=== PATIENT | male | born 1995 | race Caucasian/White ===

== ENCOUNTER 2017-12-09 11:57 | Emergency (ER) | payer BC ==
[2017-12-09 13:15] LABS: PLATELET COUNT 221 10^3/uL (150-400)
--- NOTE | 2017-12-09 13:44 | CPEKG ---
Test Reason : OPEN Blood Pressure : / mmHG Vent. Rate : 055 BPM Atrial Rate : 056 BPM P-R Int : 185 ms QRS Dur : 094 ms QT Int : 389 ms P-R-T Axes : 035 086 052 degrees QTc Int : [address] elev, probable normal early repol pattern Confirmed by Tra Ponce ([id number]) on 12/09/2017 1:43:27 PM Referred By: Confirmed By:Tra Ponce
--- NOTE | 2017-12-09 13:54 | EDPHY ---
H & P Stated Complaint: CP Time Seen by Provider: 12/09/17 12:56 HPI/ROS: CHIEF COMPLAINT: Chest pain HISTORY OF PRESENT ILLNESS: The patient presents the ED for evaluation of 2 days of intermittent chest pain. The patient reports he is experience it primarily at night. He does seem to be worse when he is laying on his side. He is unable to reproduce it laying flat. The patient did have an episode of syncope 2 weeks ago while at a concert that he attributed to dehydration. Additionally approximately 2 months ago the patient had an episode of chest pain with a negative workup. At that point time he was diagnosed with possible gastroesophageal reflux disease versus anxiety. The patient is scheduled to see Cardiology on Saturday for an outpatient visit. The patient's father does have a history of mitral valve prolapse and reported an NSVT which has not required further treatment. The patient is currently asymptomatic at the time of my evaluation. He denies any history of exertional chest pain or presyncope. The patient denies any significant drug or alcohol use. He does smoke occasional marijuana. There is no history of recent surgery. The patient denies fever, cough or congestion. He denies any acute neurologic symptoms. REVIEW OF SYSTEMS: A comprehensive 10 point review of systems is otherwise negative aside from elements mentioned in the history of present illness. Source: Patient Exam Limitations: No limitations - Personal History Current Tetanus/Diphtheria Vaccine: Yes - Medical/Surgical History Hx Asthma: No Hx Chronic Respiratory Disease: No Hx Diabetes: No Hx Cardiac Disease: No Hx Renal Disease: No Hx Cirrhosis: No Hx Alcoholism: No Other PMH: Denies - Social History Smoking Status: Never smoked - Physical Exam Exam: General Appearance: Alert, no distress Eyes: Pupils equal and round no pallor or injection ENT, Mouth: Mucous membranes moist Respiratory: There are no retractions, lungs are clear to auscultation Cardiovascular: Regular rate and rhythm Gastrointestinal: Abdomen is soft and nontender, no masses, bowel sounds normal Neurological: A&O, normal motor function, normal sensory exam, normal cranial nerves Skin: Warm and dry, no rashes Musculoskeletal: Neck is supple nontender Extremities: symmetrical, full range of motion Psychiatric: Patient is oriented X 3, there is no agitation Constitutional: Initial Vital Signs Temperature (C) 36.3 C 12/09/17 12:14 Heart Rate 73 12/09/17 12:14 Respiratory Rate 18 12/09/17 12:14 Blood Pressure 127/88 H 12/09/17 12:14 O2 Sat (%) 97 12/09/17 12:14 O2 Delivery Mode Room Air Allergies/Adverse Reactions: No Known Allergies Allergy (Unverified 12/09/17 12:17) Home Medications: Medication Instructions Recorded NK [No Known Home Meds] 12/09/17 Medical Decision Making - Diagnostics EKG Interpretation: EKG: Complete interpretation has been separately recorded in the [facility] archive. Summary impression: Sinus rhythm Imaging Results: Chest x-ray PA lateral: Images reviewed by myself. Impression: Normal chest x -ray without evidence of pneumothorax or cardiomegaly. ED Course/Re-evaluation: The patient presents to the ED after 2 days of atypical nonexertional chest pain. The patient's EKG demonstrates no evidence of ischemia. He has no clinical symptoms consistent with pericarditis. The patient's troponin is normal. His laboratory studies are normal. Chest x-ray demonstrates no evidence of a pneumothorax and a cardiac echo demonstrates no wall motion abnormality, significant pericardial effusion or septal hypertrophy. At this point time the etiology of his symptoms are somewhat uncertain. He is scheduled to see Dr. Keyon Zhang from Cardiology this Saturday. The patient will be discharged home with instructions to return to the ED for markedly worsening chest pain, difficulty breathing or other concerns. He is advised to take ranitidine as gastroesophageal reflux disease may be contributing to his symptoms. The patient did undergo a echocardiogram which was reviewed by Dr. Leon Malik from Cardiology. It demonstrates no evidence of septal hypertrophy, a wall motion abnormality or other acute finding. Differential Diagnosis: Differential diagnosis considered includes myocardial infarction, hypertrophic cardiomyopathy, dehydration, metabolic abnormality, arrhythmia, gastroesophageal reflux disease - Data Points Laboratory Results: Laboratory Results 12/09/17 12:30 12/09/17 12:30 12/09/17 12/09/17 12/09/17 13:02 12:30 12:30 WBC 10.96 10^3/uL H 10^3/uL (3.80-9.50) RBC 5.29 10^6/uL 10^6/uL (4.40-6.38) Hgb 16.2 g/dL g/dL (13.7-17.5) Hct 47.3 % % (40.0-51.0) MCV 89.4 fL fL (81.5-99.8) MCH 30.6 pg pg (27.9-34.1) MCHC 34.2 g/dL g/dL (32.4-36.7) RDW 12.3 % % (11.5-15.2) Plt Count 221 10^3/uL 10^3/uL (150-400) MPV 9.9 fL fL (8.7-11.7) Neut % (Auto) 75.4 % H % (39.3-74.2) Lymph % (Auto) 17.2 % % (15.0-45.0) Glascock % (Auto) 6.1 % % (4.5-13.0) Eos % (Auto) 0.7 % % (0.6-7.6) Baso % (Auto) 0.1 % L % (0.3-1.7) Nucleat RBC Rel Count 0.0 % % (0.0-0.2) Absolute Neuts (auto) 8.26 10^3/uL H 10^3/uL (1.70-6.50) Absolute Lymphs (auto) 1.89 10^3/uL 10^3/uL (1.00-3.00) Absolute Monos (auto) 0.67 10^3/uL 10^3/uL (0.30-0.80) Absolute Eos (auto) 0.08 10^3/uL 10^3/uL (0.03-0.40) Absolute Basos (auto) 0.01 10^3/uL L 10^3/uL (0.02-0.10) Absolute Nucleated RBC 0.00 10^3/uL 10^3/uL (0-0.01) Immature Gran % 0.5 % % (0.0-1.1) Immature Gran # 0.05 10^3/uL 10^3/uL (0.00-0.10) Sodium 141 mEq/L mEq/L (135-145) Potassium 4.5 mEq/L mEq/L (3.3-5.0) Chloride 100 mEq/L mEq/L (97-110) Carbon Dioxide 27 mEq/l mEq/l (22-31) Anion Gap 14 mEq/L mEq/L (8-16) BUN 16 mg/dL mg/dL (7-23) Creatinine 1.0 mg/dL mg/dL (0.7-1.3) Estimated GFR > 60 Glucose 70 mg/dL mg/dL (70-100) Calcium 10.5 mg/dL H mg/dL (8.5-10.4) POC Troponin I 0.00 ng/mL ng/mL (0.00-0.08) Point of Care Test Results: Chemistry 12/09/17 13:02 POC Troponin I 0.00 ng/mL ng/mL (0.00-0.08) Departure - Departure Disposition: Home, Routine, Self-Care Clinical Impression: Chest pain Condition: Good Instructions: Chest Pain (ED) Additional Instructions: 1. I would recommend beginning Zantac 150 mg twice a day as gastroesophageal reflux disease may be contributing to your symptoms. 2. The workup in the emergency department today including your x-ray, laboratory testing, echocardiogram and EKG are within normal limits. 3. Please return to the ED for severe chest pain, markedly worsening symptoms or other concerns. 4. Please follow up as scheduled with Dr. Zhang on Saturday. Referrals: Keyon Zhang MD [Medical Doctor] - As per Instructions
--- NOTE | 2017-12-09 14:19 | ECHO ---
[email or web address] [address] [address] Main: [phone] Fax: Transthoracic Echocardiogram Name: ZENOBIA SENA MR#: [id number] Study Date: 12/09/2017 Study Time: 01:11 PM Date of : 1995 Age: 22 year(s) Height: 172.7 cm (68 in.) Weight: 65.77 kg (145 lb.) BSA: 1.78 m2 Gender: Male Examination: Echo Indication: Chest Pain Image Quality: Contrast: Requested by: Tra Ponce BP: 112 mmHg/84 mmHg Heart Rate: Rhythm: Indication: Chest Pain Procedure Staff Grade Checker: Dipika Vázquez RDCS Reading Physician: Leon Malik MD Requesting Provider: Conclusions: Normal size left ventricle. Normal global systolic LV function. The ejection fraction is estimated to be 65-70 %. The mitral valve is normal in appearance and function. Trivial mitral valve regurgitation. The aortic valve is normal in appearance and function. Trivial anterior pericardial effusion. No old studies for comparison. Measurements: Chambers Valvular Assessment AV/MV Valvular Assessment TV/PV Normal Normal Normal Name Value Range Name Value Range Name Value Range IVSd (2D): 0.6 cm (0.6 cm-1.1 AV Vmax: 1.02 m/s (1 m/s-1.7 TR Vmax: 1.71 mm/s ( - ) cm) m/s) TR PGmax: 12 mmHg ( - ) LVDd (2D): 4.8 cm (4.2 cm-5.9 AV maxP mmHg ( - ) syst. PAP: 17 mmHg ( - ) cm) AV meanP mmHg ( - ) LVDs (2D): 3.0 cm (2.1 cm-4 MV E Vmax: 0.67 m/s ( - ) cm) MV A Vmax: 0.41 m/s ( - ) LVPWd (2D): 0.7 cm (0.6 cm-1 MV E/A: 1.63 ( - ) cm) LVEF (MOD4): 72 % (>=55 %) EF Range: 65-70 % Continued Measurements: Chambers Valvular Assessment AV/MV Valvular Assessment TV/PV Name Value Name Value Name Value LADs: 3.4 cm MV E/E' Septal: 5.60 CVP (est.): 5 mmHg Patient: ZENOBIA SENA Study Date: 12/09/2017 Page 1 of 2 01:11 PM LADs Lon.2 cm MV E/E' Lateral: 3.80 LA Area: 17.4 cm2 Additional Vessels Name Value Ao Ascendin.6 cm Findings: Left Ventricle: Normal size left ventricle. No LV hypertrophy. Normal global systolic LV function. The ejection fraction is estimated to be 65-70 %. No regional wall motion abnormality. Right Ventricle: Normal size right ventricle. Left Atrium: The left atrium is normal in size. Right Atrium: The right atrium is normal in size. Mitral Valve: The mitral valve is normal in appearance and function. Trivial mitral valve regurgitation. Aortic Valve: The aortic valve is normal in appearance and function. The aortic valve is tri-leaflet. Tricuspid Valve: The tricuspid valve is normal in appearance and function. Trivial tricuspid valve regurgitation. Pulmonic Valve: The pulmonic valve is normal in appearance and function. Aorta: The aorta is normal. Pericardium: Trivial anterior pericardial effusion. (No Signature Object) Patient: ZENOIBA SENA Study Date: 12/09/2017 Page 2 of 2 01:11 PM [id number]
[2017-12-09 14:30] VITALS: BP 125/71
== END 2017-12-09 14:36 | disposition home or self-care (01) ==
DX: R07.9 Chest pain, unspecified (principal)
CPT/HCPCS: 84484-PO